=== PATIENT | female | born 1995 | race Caucasian/White ===

== ENCOUNTER 2017-05-25 06:14 | Emergency (ER) | payer BC ==
[2017-05-25] MEDS ORDERED: Lidocaine 2% Jelly 10 ML Urojet MUCMEM ONE (06:27)
[2017-05-25] MEDS ORDERED: Lidocaine 2% Jelly 10 ML Urojet ONE (06:29)
[2017-05-25] MEDS ORDERED: Ibuprofen 600 MG Tab PO ONE (06:32)
--- NOTE | 2017-05-25 06:32 | EDM.PDOC ---
ED HPI GENERAL MEDICAL PROBLEM - General Chief Complaint: ENT Problem Stated Complaint: LT EAR PAIN Time Seen by Provider: 05/25/17 06:27 Source of Information: Reports: Patient History Limitations: Reports: No Limitations - History of Present Illness INITIAL COMMENTS - FREE TEXT/NARRATIVE: 22-year-old female presents to the ED with acute onset of left ear pain since she woke at 0500 hrs. this morning they noise in the ear. She had a cold 2 months ago but doesn't feel it she is nasally congested recently no problems with allergies. Has been swimming a bit more than normal lately. Pain is sharp and stabbing. Onset: Today Onset Date: 05/25/17 Onset Time: 05:00 Duration: Minutes: Location: Reports: Other (Left ear.) Quality: Reports: Ache, Dull, Stabbing Severity: Moderate Worsens with: Reports: None Context: Denies: Activity, Exercise, Lifting, Sick Contact, Trauma, Other Associated Symptoms: Reports: No Other Symptoms. Denies: Fever/Chills, Headaches, Loss of Appetite, Malaise, Nausea/Vomiting, Rash, Seizure, Shortness of Breath, Syncope Treatments WELLNESS RN: Reports: Other (see below) (None.) Left Ear Pain Score (Numeric/FACES): 4 - Related Data Allergies Allergy/AdvReac Type Severity Reaction Status Date / Time Penicillins Allergy Itching Verified 05/25/17 06:45 Home Meds: Home Meds Ciprofloxacin HCl [Cipro] 500 mg PO BID #16 tablet 05/25/17 [Rx] Social & Family History - Living Situation & Occupation Living situation: Reports: Single Occupation: Employed ED ROS ENT - Review of Systems Review Of Systems: See Below Constitutional: Denies: Fever, Chills, Malaise, Weakness, Fatigue, Decreased Appetite, Weight Loss HEENT: Reports: Ear Pain (Left side see history of present illness). Denies: Eye Pain, Rhinitis, Sinus Problem, Throat Pain, Throat Swelling Respiratory: Reports: No Symptoms Cardiovascular: Reports: No Symptoms Endocrine: Reports: No Symptoms GI/Abdominal: Reports: No Symptoms : Reports: No Symptoms Musculoskeletal: Reports: No Symptoms Skin: Reports: No Symptoms Neurological: Reports: No Symptoms Psychiatric: Reports: No Symptoms Hematologic/Lymphatic: Reports: No Symptoms ED EXAM, ENT - Physical Exam Exam: See Below Exam Limited By: No Limitations General Appearance: Alert, WD/WN, Mild Distress Eye Exam: Bilateral Eye: Normal Inspection Ears: Normal External Exam, Canal Foreign Body (A small insect which appears to be a was identified lying upside down inside the left ear canal up against the tympanic membrane. He does not appear to be a stinging type of insect. The eardrum itself is bulging with fluid and is mildly erythematous.), TM Bulging, TM Erythema, TM Fluid (Left side), Other (The right tympanic membrane is normal.). No: Normal Canal, Auricular Tenderness, TM Blood Nose: Normal Inspection Mouth/Throat: Normal Inspection, Normal Gums, Normal Teeth, Tonsillar Swelling ( Hypertrophic tonsils without erythema or exudate.) Head: Atraumatic, Normocephalic Neck: Normal Inspection, Supple, Non-Tender, Full Range of Motion. No: Lymphadenopathy (L), Lymphadenopathy (R) Respiratory/Chest: No Respiratory Distress, Lungs Clear, Normal Breath Sounds, No Accessory Muscle Use Course - Vital Signs Last Recorded V/S: Last Vital Signs Temp 36.9 C 05/25/17 06:46 Pulse 78 05/25/17 06:46 Resp 18 05/25/17 06:46 BP 120/70 05/25/17 06:46 Pulse Ox 100 05/25/17 06:46 - Orders/Labs/Meds Meds: Medications Discontinued Medications Generic Name Dose Route Start Last Admin Trade Name Lynda PRN Reason Stop Dose Admin Ibuprofen 600 mg 05/25/17 06:32 05/25/17 06:40 Motrin PO 05/25/17 06:33 600 mg ONETIME ONE Administration Levofloxacin 500 mg 05/25/17 06:37 05/25/17 06:43 Levaquin PO 05/25/17 06:38 500 mg ONETIME ONE Administration Lidocaine HCl 10 ml 05/25/17 06:27 05/25/17 06:41 Xylocaine 2% Jelly MUCMEM 05/25/17 06:28 10 ml ONETIME ONE Administration Lidocaine HCl Confirm 05/25/17 06:29 05/25/17 06:41 Xylocaine 2% Jelly Administered 05/25/17 06:30 Not Given Dose 10 ml .ROUTE .STK-MED ONE Oxycodone/Acetaminophen 1 tab 05/25/17 06:33 05/25/17 06:40 Percocet 325-5 Mg PO 05/25/17 06:34 1 tab ONETIME ONE Administration - Radiology Interpretation Free Text/Narrative:: 22-year-old female presents the ED with painful left ear that she awoke with it at 0500 hrs. this morning. She states she had no pain before going to bed. No recent cold or allergy issues. Examination reveals the right tympanic membrane to be normal the left was bulging and erythematous component with an otitis media. Coincidentally a small insect which appears to be beetle-like was identified upside down in the ear canal and was quite alive. Does not appear to be a stinging organism but might be responsive for some of the crackling that she appreciated in her ear. At any rate she had viscous lidocaine applied into the ear canal and after 5 minutes the or bug which was smothered or suffocated from the lidocaine was washed out of the canal. Placed on Levaquin 500 mg by mouth now and Percocet 03/26/25 for pain relief with Motrin 600 mg by mouth for pain relief. 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 Continue Motrin 600 mg every 6 hours necessary for pain relief. Departure - Departure Time of Disposition: 06:27 Disposition: Home, Self-Care 01 Condition: Fair Clinical Impression: Otitis media Qualifiers: Otitis media type: suppurative Chronicity: acute Laterality: left Recurrence: not specified as recurrent Spontaneous tympanic membrane rupture: without spontaneous rupture Qualified Code(s): H66.002 - Acute suppurative otitis media without spontaneous rupture of ear drum, left ear Foreign body in left ear Qualifiers: Encounter type: initial encounter Qualified Code(s): T16.2XXA - Foreign body in left ear, initial encounter - Discharge Information Prescriptions: Ciprofloxacin HCl [Cipro] 500 mg PO BID #16 tablet Referrals: PCP,None [Primary Care Provider] - Forms: ED Department Discharge Additional Instructions: Evaluation in the emergency room this morning due to acute onset of left ear pain and cracking sensation. On examination he do have an ear infection with bulging of the tympanic membrane. Coincidentally identified a small insect within the ear canal that was actively moving likely contributing to some of the crackling discomfort and noise. The insect was smothered with viscous lidocaine which is a poison to the insect. The insect was then irrigated from the ear. You will need to take antibiotic Cipro 500 mg twice daily for the next 8 days to clear up ear infection. First dose will be due tomorrow am . You were given Motrin and Percocet 5/325mg tablets for pain relief in the ED as well as first dose of antibiotic Levaquin 500 mg by mouth. Continue Motrin 600 mg every 6 hours needed for pain relief.
[2017-05-25] MEDS ORDERED: Acetaminophen/oxyCODONE 325-5 MG Tab PO ONE (06:33)
[2017-05-25] MEDS ORDERED: Levofloxacin 250 MG Tab PO ONE (06:37)
== END 2017-05-25 06:56 | disposition home or self-care (01) ==
LOC: JD.ED 06:14
DX: T16.2XXA Foreign body in left ear, initial encounter (principal); H66.002 Acute suppurative otitis media without spontaneous rupture of ear drum, left ear; Z88.0 Allergy status to penicillin
CPT/HCPCS: 99282; A9270; 99284

== ENCOUNTER 2019-02-04 18:22 | Emergency (ER) | payer SELFPAY ==
--- NOTE | 2019-02-04 19:02 | EDM.PDOC ---
ED HPI GENERAL MEDICAL PROBLEM - General Chief Complaint: Chest Pain Stated Complaint: CHEST TIGHTNESS Time Seen by Provider: 02/04/19 18:54 Source of Information: Reports: Patient History Limitations: Reports: No Limitations - History of Present Illness INITIAL COMMENTS - FREE TEXT/NARRATIVE: 24-year-old female attends the ED with reports of intermittent palpitations and central chest pressure discomfort almost all the way up into her lower throat and suprasternal notch area. No known heartburn or indigestion. Denies any excessive burping or belching. No wheezing. No sense of dyspnea. She denies any cough or sputum production. No fever or chills. She's been having intermittent central chest pressure discomfort off and on for the last 10 days. 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 She also has some disrupted sleep pattern. Has never had to be on medication for anxiety. Denies any possibility of . Denies any problems with her bowel function or upper abdominal pain. Patient reports that she drinks a bit more coffee as of late but only 2 cups a day for per se. Not a big fan of [employer] products. No energy drinks. No nicotine use and rare alcohol use. Onset: Gradual Onset Date: 01/25/19 (Problems off and on for the last 10 days.) Duration: Day(s):, Intermittent, Waxing/Waning Location: Reports: Chest (Upper central chest pressure discomfort intermittent with sometimes associated palpitations.) Quality: Reports: Pressure (Mild pressure discomfort) Severity: Mild Improves with: Reports: None Worsens with: Reports: None Context: Denies: Activity, Exercise, Lifting, Sick Contact, Trauma, Other Treatments [facility]: Reports: Other (see below) (None.) Chest Pain Score (Numeric/FACES): 3 - Related Data Allergies Allergy/AdvReac Type Severity Reaction Status Date / Time Penicillins Allergy Itching Verified 02/04/19 18:32 Home Meds: Home Meds . [No Known Home Meds] 02/04/19 [History] Past Medical History - Past Health History Medical/Surgical History: Denies Medical/Surgical History HEENT History: Reports: Impaired Vision Cardiovascular History: Reports: None Respiratory History: Reports: Asthma, Pneumonia, Recurrent Gastrointestinal History: Reports: None Genitourinary History: Reports: None FIELD SUPPORT REP History: Reports: None Musculoskeletal History: Reports: None Neurological History: Reports: Concussion Psychiatric History: Reports: Anxiety Endocrine/Metabolic History: Reports: None Immunologic History: Reports: None Oncologic (Cancer) History: Reports: None Dermatologic History: Reports: None - Infectious Disease History Infectious Disease History: Reports: None - Past Surgical History Head Surgeries/Procedures: Reports: None HEENT Surgical History: Reports: None Cardiovascular Surgical History: Reports: None Respiratory Surgical History: Reports: None Social & Family History - Family History Family Medical History: Noncontributory Cardiac: Reports: Hypertension Musculoskeletal: Reports: Back pain, Chronic Endocrine/Metabolic: Reports: Hypothyroidism - Tobacco Use Smoking Status *Q: Never Smoker - Caffeine Use Caffeine Use: Reports: Coffee - Recreational Drug Use Recreational Drug Use: No - Living Situation & Occupation Living situation: Reports: Single Occupation: Employed ED ROS GENERAL - Review of Systems Review Of Systems: See Below Constitutional: Denies: Fever, Chills, Malaise, Weakness, Fatigue, Weight Loss HEENT: Reports: Glasses Respiratory: Reports: Shortness of Breath. Denies: Wheezing, Pleuritic Chest Pain, Cough, Sputum, Hemoptysis, Other Cardiovascular: Reports: Chest Pain. Denies: Blood Pressure Problem, Claudication (Central pressure discomfort intermittently for the last 10 days), Dyspnea on Exertion, Edema, Lightheadedness, Orthopnea, Palpitations Endocrine: Reports: Fatigue GI/Abdominal: Reports: No Symptoms (Slightly increased fatigue.) : Reports: No Symptoms Musculoskeletal: Reports: No Symptoms Skin: Reports: No Symptoms Neurological: Reports: No Symptoms Psychiatric: Reports: No Symptoms Hematologic/Lymphatic: Reports: No Symptoms Immunologic: Reports: No Symptoms ED EXAM, GENERAL - Physical Exam Exam: See Below Exam Limited By: No Limitations General Appearance: Alert, WD/WN, No Apparent Distress, Other (Vital signs show BP to be 130/80. Sats are 100% on room air. Respiratory rate 14. Afebrile.) Eye Exam: Bilateral Eye: Normal Inspection Ears: Normal TMs Throat/Mouth: Normal Inspection, Normal Lips, Normal Teeth, Normal Oropharynx Head: Atraumatic, Normocephalic Neck: Normal Inspection, Supple, Non-Tender, Full Range of Motion. No: Carotid Bruit, Lymphadenopathy (L), Lymphadenopathy (R) Respiratory/Chest: No Respiratory Distress, Lungs Clear, Normal Breath Sounds, No Accessory Muscle Use. No: Rales, Rhonchi, Wheezing Cardiovascular: Normal Peripheral Pulses, Regular Rate, Rhythm, No Edema, No Gallop, No Murmur, No Rub Peripheral Pulses: 3+: Posterior Tibial (L), Posterior Tibial (R), Dorsalis Pedis (L), Dorsalis Pedis (R) GI/Abdominal: Normal Bowel Sounds, Soft, Non-Tender, No Organomegaly, No Abnormal Bruit, No Mass, Pelvis Stable, Other (Mildly obese. No surgical scars) Back Exam: Normal Inspection, Full Range of Motion, Other (No rib head tenderness.). No: CVA Tenderness (L), CVA Tenderness (R) Extremities: Normal Inspection, Normal Range of Motion, Non-Tender, No Pedal Edema Neurological: Alert, Oriented, CN II-XII Intact, Normal Cognition Psychiatric: Normal Affect, Normal Mood Skin Exam: Warm, Dry, Intact, Normal Color, No Rash EKG INTERPRETATION EKG Date: 02/04/19 Time: 18:30 Rhythm: NSR Rate (Beats/Min): 78 [place]: Normal P-Wave: Present QRS: Normal ST-T: Normal QT: Prolonged EKG Interpretation Comments: Essentially normal ECG Course - Vital Signs Last Recorded V/S: Last Vital Signs Temp 36.8 C 02/04/19 18:34 Pulse 62 02/04/19 18:34 Resp 14 02/04/19 18:34 BP 142/84 H 02/04/19 18:34 Pulse Ox 100 02/04/19 18:34 - Orders/Labs/Meds Orders: Active Orders 24 hr Category Date Time Status EKG Documentation Completion [RC] STAT Care 02/04/19 19:03 Active Chest 1V Frontal [CR] Stat Exams 02/04/19 19:03 Taken - Radiology Interpretation Free Text/Narrative:: 24-year-old female presents to the ED for assessment of intermittent central chest heaviness pressure discomfort off and on for the last 10 days. She has some insight that it may be related to recent job change and increased anxiety. She has no signs or symptoms of upper respiratory tract infection. Vital signs are normal. Lungs are clear to auscultation percussion. No signs without any murmurs. Benign abdominal examination no dependent edema no evidence clinically of DVT. Plan ECG and one view chest x-ray to be obtained. - Re-Assessments/Exams Free Text/Narrative Re-Assessment/Exam: 02/04/19 19:38 chest x-ray done portably reveals mild cardiomegaly by portable technique I believe it is over magnified. The lungs are essentially clear with no evidence of pleural effusion or vascular congestion. 02/04/19 20:01 ECG is also within normal limits. Discussed the findings with the patient and reassured her that I find no evidence of heart related illness. I think reassurance helped a good deal. We discussed possibility of hiatal hernia as she has moderate degree of abdominal obesity. Raises her risk of hiatal hernia and/or esophageal reflux. My overall impression is that this is mostly anxiety related due to new job, new personnel in the workplace and having to work quite hard at the new job to achieve. She does have some insight into this as well. Departure - Departure Time of Disposition: 20:02 Disposition: Home, Self-Care 01 Condition: Fair Clinical Impression: Non-cardiac chest pain, Mild anxiety Instructions: Nonspecific Chest Pain, [id number] Referrals: PCP,None [Primary Care Provider] - Forms: ED Department Discharge Additional Instructions: Evaluation the emergency room today in regards to intermittent central chest pressure discomfort particularly up in the upper third of the chest. This is been coming and going for the last 10 days or more. Examination the ED reveals vital signs are completely normal. ECG and chest x-ray were also found to be completely normal. Examination was normal as well. There is no clinical evidence that you have any heart related illness or lung illness. I agree with you that likely mild anxiety is contributing to yor intermittent symptoms. I would adopt a wait and see approach and see how things go over the next 3 weeks. Continue to have similar problems or difficulties then you should consult with her personal care physician. - My Orders Last 24 Hours: My Active Orders 02/04/19 19:03 EKG Documentation Completion [RC] STAT Chest 1V Frontal [CR] Stat - Assessment/Plan Last 24 Hours: My Active Orders 02/04/19 19:03 EKG Documentation Completion [RC] STAT Chest 1V Frontal [CR] Stat
--- NOTE | 2019-02-05 10:27 | CR ---
Chest: Portable view of the chest was obtained. Comparison: No previous chest x-ray. Heart size and mediastinum are within normal limits for portable technique. Lungs are clear. Bony structures are grossly intact. Impression: 1. Nothing acute is appreciated on portable chest x-ray. Diagnostic code #1
== END 2019-02-04 20:10 | disposition home or self-care (01) ==
LOC: JD.ED 18:22
DX: R07.89 Other chest pain (principal); F41.9 Anxiety disorder, unspecified; Z88.0 Allergy status to penicillin
CPT/HCPCS: 71045; 71045-26; 93005; 93010; 99285; 99285-25

== ENCOUNTER 2025-07-12 02:24 | Inpatient (IN) | payer BC ==
[2025-07-12] MEDS ORDERED: Oxytocin/0.9 % Sodium Chloride 30 UNIT/500 ML BAG IV SCH (19:30)
[2025-07-12 20:08] LABS: BASOPHILS ABSOLUTE AUTO 0.0 K/mm3 (0.0-0.2); BASOPHILS PERCENT AUTO 0.2 % (0.0-1.0); EOSINOPHILS ABSOLUTE AUTO 0.1 K/mm3 (0.0-0.4); EOSINOPHILS PERCENT AUTO 0.5 % (0.0-6.0); IMMATURE GRAN ABSOLUTE AUTO 0.03 K/mm3 (0.00-0.05); IMMATURE GRAN PERCENT AUTO 0.3 % (0.0-0.4); LYMPHOCYTES ABSOLUTE AUTO 2.0 K/mm3 (1.0-4.8); LYMPHOCYTES PERCENT AUTO 19.8 % (24.0-44.0); MEAN PLATELET VOLUME 9.4 fl (9.4-12.3); MONOCYTES ABSOLUTE AUTO 0.6 K/mm3 (0.0-0.8); MONOCYTES PERCENT AUTO 5.7 % (0.0-8.0); NEUTROPHILS ABSOLUTE AUTO 7.6 K/mm3 (1.8-7.7); NEUTROPHILS PERCENT AUTO 73.5 % (41.0-71.0); NRBC ABSOLUTE 0.00 (0.00-0.02); NRBC PERCENT 0.0 % (0.0-0.2); PLATELET COUNT,PLT 254 K/mm3 (150-400); RED BLOOD CELL COUNT 4.80 M/mm3 (4.10-5.30); WHITE BLOOD CELL COUNT,WBC 10.26 K/mm3 (3.9-11.3)
[2025-07-12] MEDS: Misoprostol 25 MCG (1/4 of 100 MCG) Tab VAG PRN (20:30)
[2025-07-12 22:21] LABS: A/G RATIO 0.7 (1-2); ALANINE AMINOTRANSFERASE,ALT 24.0 U/L (14-59); ASPARTATE AMNIOTRANSFERASE,AST 16.0 U/L (15-37); BILIRUBIN TOTAL 0.2 mg/dL (0.2-1.0); BLOOD UREA NITROGEN,BUN 11.0 mg/dL (7-18); CARBON DIOXIDE,CO2 24.0 mEq/L (21-32); CHLORIDE,CL 104.0 mEq/L (98-107); CREATININE 0.5 mg/dL (0.55-1.02); EST CRCL DRUG DOSING (CG) 152.61 mL/min; ESTIMATED GFR 129.0 mL/min (>60); GLUCOSE RANDOM 85.0 mg/dL (70-99); POTASSIUM,K 4.1 mEq/L (3.5-5.1); PROTEIN TOTAL,TP 6.4 g/dl (6.4-8.2); SODIUM,NA 136.0 mEq/L (136-145)
[2025-07-12 23:21] LABS: CREATININE,URINE RAND 211.1 mg/dL (30.0-125.0); PROTEIN CREATININE RATIO,URINE 81.5 mg/g (0-149); PROTEIN,URINE RANDOM 17.2 mg/dL (0.0-11.8)
[2025-07-13] MEDS: Oxytocin/0.9 % Sodium Chloride 30 UNIT/500 ML BAG IV SCH (07:26)
[2025-07-13] MEDS: Lactated Ringers 1,000 ML IV SCH (07:26)
[2025-07-13] MEDS: Nalbuphine 10 MG/1 ML Vial IVPUSH PRN (12:55)
[2025-07-13] MEDS ORDERED: diphenhydrAMINE 50 MG/ML SDV IVPUSH PRN (14:37)
[2025-07-13] MEDS: Bupivacaine/fentaNYL/NS 100 ML Bag EPIDUR PRN (14:54)
[2025-07-13] MEDS: ePHEDrine 50 MG/ML SDV IVPUSH PRN (15:24)
[2025-07-13] MEDS ORDERED: dexmedeTOMIDine HCl 200 MCG/2 ML SDV ONE (21:29)
[2025-07-13] MEDS ORDERED: fentaNYL 100 MCG/2 ML SDV ONE (21:29)
[2025-07-13] MEDS: Ondansetron 4 MG/2 ML SDV IVPUSH PRN (23:38)
[2025-07-13] MEDS ORDERED: Lactated Ringers 1,000 ML IV SCH (23:45)
[2025-07-13] MEDS ORDERED: Sodium Chloride 0.9% 10 ML Syringe FLUSH PRN (23:53)
[2025-07-14] MEDS ORDERED: Ropivacaine 0.5% 5 MG/ML 30 ML SDV ONE (00:59)
[2025-07-14] MEDS ORDERED: Morphine PF 10 MG/10 ML SDV ONE (01:02)
[2025-07-14] MEDS: Citric Acid/Sodium Citrate Solution 30 ML Cup PO ONE (01:15)
[2025-07-14] MEDS ORDERED: Lactated Ringers 1,000 ML IV ONE (01:20)
[2025-07-14] MEDS ORDERED: Bupivacaine 0.75%/D5W 2 ML Amp ONE (01:38)
[2025-07-14] MEDS ORDERED: Succinylcholine 200 MG/10 ML MDV ONE (02:04)
[2025-07-14] MEDS ORDERED: propofoL 500 MG/50 ML 50 ML ONE (02:04)
[2025-07-14] MEDS ORDERED: fentaNYL 250 MCG/5 ML SDV ONE (02:16)
[2025-07-14] MEDS ORDERED: Oxytocin/0.9 % Sodium Chloride 30 UNIT/500 ML BAG IV ONE (02:25)
[2025-07-14] MEDS ORDERED: Lactated Ringers 1,000 ML ONE (02:30)
[2025-07-14] MEDS ORDERED: EPINEPHrine 1 MG/ML SDV ONE (02:32)
[2025-07-14] MEDS ORDERED: Propofol 200 MG/20 ML SDV ONE (02:41)
[2025-07-14] MEDS ORDERED: Ketorolac 30 MG/ML SDV ONE (02:47)
[2025-07-14] MEDS ORDERED: diphenhydrAMINE 50 MG/ML SDV IVPUSH PRN ×2 (03:35→04:08)
[2025-07-14] MEDS ORDERED: fentaNYL 100 MCG/2 ML SDV IVPUSH PRN (03:35)
[2025-07-14] MEDS ORDERED: Ondansetron 4 MG/2 ML SDV IVPUSH PRN (03:35)
[2025-07-14] MEDS ORDERED: ePHEDrine 50 MG/ML SDV IVPUSH PRN (04:08)
[2025-07-14] MEDS ORDERED: Magnesium Hydroxide 400 MG/5 ML Susp 30 ML Cup PO PRN (04:08)
[2025-07-14] MEDS ORDERED: Naloxone 0.4 MG/ML SDV IVPUSH PRN (04:08)
[2025-07-14] MEDS: Oxytocin/0.9 % Sodium Chloride 30 UNIT/500 ML BAG IV SCH (04:15)
[2025-07-14] MEDS: Ketorolac 30 MG/ML SDV IVPUSH SCH (08:58)
[2025-07-14] MEDS: Prenatal Multivitamin with Calcium/Folic Acid/Iron Tab PO SCH (08:58)
[2025-07-14] MEDS ORDERED: Sodium Chloride 0.9% 10 ML Syringe FLUSH SCH (09:00)
[2025-07-14 11:32] LABS: MEAN PLATELET VOLUME 9.8 fl (9.4-12.3); NRBC ABSOLUTE 0.00 (0.00-0.02); NRBC PERCENT 0.0 % (0.0-0.2); PLATELET COUNT,PLT 248 K/mm3 (150-400); RED BLOOD CELL COUNT 4.08 M/mm3 (4.10-5.30); WHITE BLOOD CELL COUNT,WBC 21.09 K/mm3 (3.9-11.3)
[2025-07-15 07:10] LABS: MEAN PLATELET VOLUME 10.1 fl (9.4-12.3); NRBC ABSOLUTE 0.00 (0.00-0.02); NRBC PERCENT 0.0 % (0.0-0.2); PLATELET COUNT,PLT 218 K/mm3 (150-400); RED BLOOD CELL COUNT 3.53 M/mm3 (4.10-5.30); WHITE BLOOD CELL COUNT,WBC 12.72 K/mm3 (3.9-11.3)
== END 2025-07-16 12:45 | disposition home or self-care (01) | DRG 540 ==
LOC: JD.OB 02:24 → OBSVTOIN 07-14 02:24 → JD.OB 07-14 02:25
PROVIDERS: ADMIT Family Medicine; ATTEND Obstetrics & Gynecology
PROC: 10H07YZ Insertion of Other Device into Products of Conception, Via Natural or Artificial Opening (ICD-10-PCS; 2025-07-14)
PROC: 10907ZC Drainage of Amniotic Fluid, Therapeutic from Products of Conception, Via Natural or Artificial Opening (ICD-10-PCS; 2025-07-14)
PROC: 4A1HXCZ Monitoring of Products of Conception, Cardiac Rate, External Approach (ICD-10-PCS; 2025-07-14)
PROC: 10D00Z1 Extraction of Products of Conception, Low, Open Approach (ICD-10-PCS; principal; 2025-07-14 00:45)
DX: O48.0 Post-term pregnancy (principal); O99.284 Endocrine, nutritional and metabolic diseases complicating childbirth; E03.9 Hypothyroidism, unspecified; O99.344 Other mental disorders complicating childbirth; F41.9 Anxiety disorder, unspecified; Z3A.40 40 weeks gestation of pregnancy; Z37.0 Single live birth; O99.214 Obesity complicating childbirth; O76 Abnormality in fetal heart rate and rhythm complicating labor and delivery; O62.1 Secondary uterine inertia
CPT/HCPCS: 01967; 01968; 36415; 51702; 59025; 80053; 82570; 84156; 85025; 85027; 86592; 86850; 86900; 86901; 94762; A9270-GY; J0169; J0330; J0456; J0690; J1885; J2274; J2300; J2405; J2704; J2765; J2795; J3010; J3490; J7050; J7120; J7121; J7999